=== PATIENT | male | born 1995 | race American Indian/Alaskan Native ===

== ENCOUNTER 2022-03-25 23:09 | Emergency (ER) | payer SELFPAY ==
[2022-03-25] MEDS ORDERED: Ketorolac 30 MG/ML SDV IM ONE (23:34)
[2022-03-26] MEDS ORDERED: Doxycycline 100 MG Cap PO STA (00:36)
== END 2022-03-26 00:53 | disposition home or self-care (01) ==
LOC: MW.ED 23:09
DX: S16.1XXA Strain of muscle, fascia and tendon at neck level, initial encounter (principal); L03.113 Cellulitis of right upper limb; M25.521 Pain in right elbow; W50.0XXA Accidental hit or strike by another person, initial encounter; Y93.72 Activity, wrestling
CPT/HCPCS: 72125; 72125-26; 73080-26-RT; 73080-RT; 73110-26-RT; 73110-RT; 96372; 99283; A9270-GY; J1885